=== PATIENT | male | born 1965 | race Caucasian/White ===

== ENCOUNTER 2017-01-01 09:15 | Emergency (ER) | payer MEDICAID ==
[~2017-01-01] VITALS: Ht 175.3 cm; Wt 68.0 kg
[2017-01-01 09:22] VITALS: BP_SYST 124
[2017-01-01 09:39] VITALS: BP_SYST 193
== END 2017-01-01 09:41 ==
LOC: SED 09:15
DX: Z02.89 Encounter for other administrative examinations (principal); M25.562 Pain in left knee
CPT/HCPCS: 99283